=== PATIENT | male | born 1975 | race Caucasian/White ===

== ENCOUNTER 2019-03-24 07:37 | Day surgery (SDC) | payer OTHER ==
[~2019-03-24 07:37] MED LIST: CEFAZOLIN 2 GM/50 ML (PMX) 50 ML IVPB
[2019-03-24] MEDS ORDERED: ROCURONIUM 50 MG INJ (08:18)
[2019-03-24] MEDS ORDERED: MIDAZOLAM 1 MG/ML 2 ML INJ (08:18)
[2019-03-24] MEDS ORDERED: CEFAZOLIN 1 GM INJ (08:18)
[2019-03-24] MEDS ORDERED: ROPIVACAINE 0.5 % 30 ML VIAL (08:18)
[2019-03-24] MEDS ORDERED: FENTAnyl 50 MCG/ML VIAL ×2 (08:18→10:29)
[2019-03-24] MEDS ORDERED: PROPOFOL 20 ML (08:18)
[2019-03-24 08:28] LABS: ADD MAN DIFF? NO
[2019-03-24] MEDS ORDERED: EPHEDrine SULFATE 50 MG/5 ML SYG IV (08:30)
[2019-03-24] MEDS ORDERED: DIPHENHYDRAMINE 50 MG INJ IV (08:30)
[2019-03-24] MEDS ORDERED: OXYCODONE/ACETAMINOPHEN (5/325) TAB PO (08:30)
[2019-03-24] MEDS ORDERED: hydrALAzine 20 MG INJ IV (08:30)
[2019-03-24] MEDS ORDERED: FENTAnyl 50 MCG/ML VIAL IV ×2 (08:30)
[2019-03-24] MEDS ORDERED: HYDROmorphONE 1 MG/5 ML IV SYRINGE IV (08:30)
[2019-03-24] MEDS ORDERED: ONDANSETRON 4 MG INJ IV (08:30)
[2019-03-24] MEDS ORDERED: METOCLOPRAMIDE 10 MG INJ IV (08:30)
[2019-03-24] MEDS ORDERED: LABETALOL HCL 20MG INJ IV (08:30)
[2019-03-24] MEDS ORDERED: MEPERIDINE 25 MG INJ IV (08:30)
[2019-03-24 08:37] LABS: BASOPHILS % 0.6 % (0.0-2.0); EOSINOPHILS # 0.1 10^3/ul (0.0-0.5); HEMATOCRIT 40.2 % (42.0-52.0); HEMOGLOBIN 12.8 g/dl (14.0-18.0); LYMPHOCYTES # 1.7 10^3/ul (0.8-2.9); LYMPHOCYTES % 24.3 % (15.0-51.0); MEAN CORPUSCULAR HEMOGLOBIN 26.2 pg (29.0-33.0); MEAN CORPUSCULAR HGB CONC 31.8 g/dl (32.0-37.0); MEAN CORPUSCULAR VOLUME 82.4 fl (82.0-101.0); MEAN PLATELET VOLUME 11.3 fl (7.4-10.4); MONOCYTE # 0.4 10^3/ul (0.3-0.9); MONOCYTES % 6.1 % (0.0-11.0); NEUTROPHIL # 4.7 10^3/ul (1.6-7.5); NEUTROPHILS % 67.7 % (39.0-77.0); PLATELET COUNT 229 10^3/UL (140-415); RED BLOOD COUNT 4.88 10^6/ul (4.70-6.10); RED CELL DISTRIBUTION WIDTH 13.5 % (11.5-14.5)
[2019-03-24 08:37] LABS: WHITE BLOOD COUNT 6.9 10^3/ul (4.8-10.8)
[2019-03-24] MEDS: SOD CHLORIDE 0.9% 1,000 ML IV (08:37)
[2019-03-24 08:54] LABS: INR 0.87; PROTIME 11.9 Sec (11.9-14.9); PT RATIO 0.9
[2019-03-24 08:55] LABS: PARTIAL THROMBOPLASTIN TIME 30.5 Sec (23.0-35.0)
[2019-03-24 09:07] LABS: ALANINE AMINOTRANSFERASE 24 IU/L (13-69); ALBUMIN 4.1 g/dl (3.3-4.9); ALBUMIN/GLOBULIN RATIO 1.07; ALKALINE PHOSPHATASE 88 IU/L (42-121); ANION GAP 11 (5-13); ASPARTATE AMINO TRANSFERASE 23 IU/L (15-46); BILIRUBIN,INDIRECT 0.6 mg/dl (0-1.1); BILIRUBIN,TOTAL 0.6 mg/dl (0.2-1.3); BLOOD UREA NITROGEN 16 mg/dl (7-20); CALCIUM 8.9 mg/dl (8.4-10.2); CARBON DIOXIDE 25 mmol/L (21-31); CHLORIDE 107 mmol/L (97-110); CREATININE 0.76 mg/dl (0.61-1.24); Estimated GFR > 60 mL/min (>60); GLUCOSE 101 mg/dl (70-220); POTASSIUM 4.2 mmol/L (3.5-5.1); SODIUM 143 mmol/L (135-144); TOTAL PROTEIN 7.9 g/dl (6.1-8.1)
[2019-03-24] MEDS ORDERED: KETOROLAC 30 MG INJ (10:29)
[2019-03-24] MEDS ORDERED: METOCLOPRAMIDE 10 MG INJ (10:29)
[2019-03-24] MEDS ORDERED: ONDANSETRON 4 MG INJ (10:29)
[2019-03-24] MEDS ORDERED: DEXAMETHASONE 4 MG/ML 5 ML INJ (10:29)
[2019-03-24] MEDS: POLYMYXIN/BACITRACIN 1L IRRIG (10:30)
[2019-03-24] MEDS: HYDROmorphONE 1 MG/5 ML IV SYRINGE IV ×2 (11:35→11:57)
[2019-03-24] MEDS: FENTAnyl 50 MCG/ML VIAL IV ×2 (11:36→11:58)
[2019-03-24] MEDS: HYDROCODONE/APAP (5/325) TAB PO (11:55)
== END 2019-03-24 13:40 | disposition home or self-care (01) ==
LOC: SDS 07:37
DX: K40.90 Unilateral inguinal hernia, without obstruction or gangrene, not specified as recurrent (principal); K66.0 Peritoneal adhesions (postprocedural) (postinfection)
CPT/HCPCS: 49507; 80053; 85025; 85610; 85730